=== PATIENT | female | born 1950 | race Caucasian/White ===

== ENCOUNTER → 2017-05-04 | Outpatient (CLI) | payer OTHER ==
[~2017-05-04] MED LIST: ADVAIR INH; ALBU90OI61 INH; ALEN70 PO; AMIT25 PO; AMIT50 PO; ASCO500; ASPI81EC PO; Amitriptyline H25 MG PO; Aspirin EC81 MG PO; BUDESONIDE EC3 MG PO; Bystolic2.5 MG PO; CALCAVITD PO; CALCIUM ANTACI200 MG PO; CALCIUM PO; CALGLU500 PO; COQ1050 MG PO; CRESTOR PO; Crestor20 MG PO; Crestor40 MG PO; DIPH50 PO; Dicyclomine HCl10 MG PO; ELMIRON PO; ENABLEX PO; ENTOCORT PO; ESTR1 PO; ESTRADIOL PO; Estradiol1 MG PO; FENO145 PO; FOLI1 PO; GLUCOSAMINE-CH1 EA10 PO; Gas-X125 MG PO; Glucosamine H1500 MG PO; HYDACE5 PO; Hair, Skin & N1 EACH PO; IBUHYD PO; KAPIDEX PO; LIALDA PO; LOPE2C; LOPE2EL PO; MAGOXI400 PO; METO50 PO; METO50ER PO; Multiple Vitam1 EAC1 PO; NAPR220 PO; NAPR375 PO; NEBI5 PO; Norco 5-325 Ta1 EACH PO; PANT20 PO; PRAM.125; PRAM.125 PO; PRAM.5 PO; PRAV10 PO; PRAV20 PO; PYRI100 PO; Pepto-Bismol262 MG PO; RANI150 PO; RISE5; Robaxin500 MG PO; SOLI5; STIOLTO RESPIMAT4 GM INH; Systane 0.3-0.1 EACH BOTHEYES; TEMA15 PO; TEMA30 PO; TEMA7.5; TRAZ50 PO; TURMERIC 450-51 EACH PO; VITAMIN B-12 IM; VITAMIN B12-FO1 EACH PO; VITAMIN B122500 MC1 PO; VITAMIN D 3 PO; VITAMIN D PO; VITAMIN D-3 PO; VITAMIN D35000 UNIT PO; ZOLP5 PO; [UNRECOGNIZED DRUG - CODE] PO; [UNRECOGNIZED DRUG - OTHER] PO; [UNRECOGNIZED DRUG - OTHER] PO; [UNRECOGNIZED DRUG - REMARK]
[2017-05-04 07:46] LABS: Adenovirus F 40/41 Not Detected (NOT DETECT); Astrovirus Not Detected (NOT DETECT); Campylobacter Sp Not Detected (NOT DETECT); Cryptosporidium Not Detected (NOT DETECT); Cyclospora Cayetanensis Not Detected (NOT DETECT); E. Coli O157 Not Detected (NOT DETECT); Entamoeba Histolytica Not Detected (NOT DETECT); Enteroaggregative E. coli-EAEC Not Detected (NOT DETECT); Enteropathogenic E. coli-EPEC Not Detected (NOT DETECT); Enterotoxigenic E. coli-ETEC Not Detected (NOT DETECT); Giardia Lamblia Not Detected (NOT DETECT); Norovirus GI/GII Not Detected (NOT DETECT); Plesiomonas Shigelloides Not Detected (NOT DETECT); Rotavirus A Not Detected (NOT DETECT); Salmonella Sp Not Detected (NOT DETECT); Sapovirus Not Detected (NOT DETECT); Shiga Toxin-prod E. coli-STEC Not Detected (NOT DETECT); Shigella/Enteroin E. coli-EIEC Not Detected (NOT DETECT); Vibrio Cholerae Not Detected (NOT DETECT); Vibrio Sp Not Detected (NOT DETECT); Yersinia Enterocolitica Not Detected (NOT DETECT)
== END ==
LOC: LAB SHORT 05-03 07:43 → OLS 07:43 → LAB FUT 05-02 12:00
PROVIDERS: Internal Medicine Gastroenterology
DX: R19.7 Diarrhea, unspecified (principal)
CPT/HCPCS: 87507

== ENCOUNTER 2017-10-17 02:31 | Day surgery (SDC) | payer OTHER ==
[~2017-10-17] VITALS: Ht 160 cm; Wt 75.0 kg
[~2017-10-17 02:31] MED LIST changes: -ALBU90OI61 INH; -Dicyclomine HCl10 MG PO; -Hair, Skin & N1 EACH PO; -LOPE2C; -MAGOXI400 PO; -TURMERIC 450-51 EACH PO
== END 2017-10-17 22:33 | disposition home or self-care (01) ==
LOC: MHTC 02:31
PROC: B246ZZ4 Ultrasonography of Right and Left Heart, Transesophageal (ICD-10-PCS; principal; 2017-10-17)
DX: I42.1 Obstructive hypertrophic cardiomyopathy (principal); I34.0 Nonrheumatic mitral (valve) insufficiency; R93.1 Abnormal findings on diagnostic imaging of heart and coronary circulation; R06.02 Shortness of breath; E78.00 Pure hypercholesterolemia, unspecified; J44.9 Chronic obstructive pulmonary disease, unspecified; F41.9 Anxiety disorder, unspecified; Z87.891 Personal history of nicotine dependence; E78.5 Hyperlipidemia, unspecified
CPT/HCPCS: 76376; 93312; 93321; 93325; J7120

== ENCOUNTER 2017-11-27 07:12 | Day surgery (SDC) | payer OTHER ==
[~2017-11-27] VITALS: Ht 160 cm; Wt 77.0 kg
[~2017-11-27 07:12] MED LIST changes: +ALBU90OI61 INH; +Dicyclomine HCl10 MG PO; +Hair, Skin & N1 EACH PO; +LOPE2C; +MAGOXI400 PO; +TURMERIC 450-51 EACH PO
== END 2017-11-27 13:57 | disposition home or self-care (01) ==
LOC: MHTC 07:12
PROC: 4A023N7 Measurement of Cardiac Sampling and Pressure, Left Heart, Percutaneous Approach (ICD-10-PCS; principal; 2017-11-27)
PROC: B2111ZZ Fluoroscopy of Multiple Coronary Arteries using Low Osmolar Contrast (ICD-10-PCS; principal; 2017-11-27)
DX: I42.2 Other hypertrophic cardiomyopathy (principal); I34.1 Nonrheumatic mitral (valve) prolapse; I34.0 Nonrheumatic mitral (valve) insufficiency; I51.89 Other ill-defined heart diseases; R06.00 Dyspnea, unspecified; Z79.82 Long term (current) use of aspirin; Z79.890 Hormone replacement therapy; Z79.899 Other long term (current) drug therapy; Z87.891 Personal history of nicotine dependence
CPT/HCPCS: 93458; 99152; C1769; C1894; J1644; J2250; J3010; J7030; Q9967